=== PATIENT | female | born 1950 | race African-American/Black ===

== ENCOUNTER 2018-04-04 09:56 | Day surgery (SDC) | payer OTHER ==
[~2018-04-04 09:56] MED LIST: BUPIVACAINE HCL 0.75% INJ/PF (7.5 MG/1 ML) 10 ML SDV OS PRN; CHONDR SU A NA/HYALUR INTRAOC KIT (SURGICARE) ONE; EPINEPHRINE INJ/PF 1 MG/1 ML AMPULE ONE; KETOROLAC TROMETHAMINE 0.45% 4 DROP/0.4 ML DROPERETTE OS PRN; LIDOCAINE 1% INJ-PF (10 MG/ML) 30 ML SDV ONE; LIDOCAINE 4% INJ/PF (40 MG/ML) 5 ML AMPUL ONE; LIDOCAINE 4% INJ/PF (40 MG/ML) 5 ML AMPUL OS PRN; TRYPAN BLUE 0.06 % OPH SOLN 0.5 ML DISP.SYRIN ONE
[2018-04-04] MEDS ORDERED: ONDANSETRON HCL INJ/PF 4 MG/2 ML SDV ONE (10:40)
[2018-04-04] MEDS ORDERED: MIDAZOLAM 2 MG/2 ML INJ ONE (10:40)
[2018-04-04] MEDS ORDERED: FENTANYL CITRATE INJ/PF 100 MCG/2 ML AMPUL ONE (10:40)
[2018-04-04] MEDS: TETRACAINE HCL 0.5% OPH SOLN 0.6 ML DROPERETTE OS PRN ×2 (11:18→11:58)
[2018-04-04] MEDS: CYCLOPENTOLATE 0.2%/PHENYLEPHRINE 1% OPH SOLN 2 ML OS PRN ×3 (11:19→11:36)
[2018-04-04] MEDS: BESIFLOXACIN HCL 0.6% OPH SUSP 5 ML BOTTLE OS PRN ×3 (11:19→12:37)
[2018-04-04] MEDS: TROPICAMIDE 1% OPH SOLN 3 ML OS PRN ×3 (11:19→11:36)
[2018-04-04] MEDS ORDERED: LIDOCAINE 1%/EPINEPHRINE INJ 20 ML VIAL ONE (12:54)
--- NOTE | 2018-04-04 13:16 | [facility] DISCHARGE SUMMARY E ---
[facility] Discharge Summary NAME: NAEL RUIZ AGE: 68Y ADMITTED: 04/04/2018 DISCHARGED: 04/04/2018 FINAL DIAGNOSIS: CATARACT, LEFT EYE HOSPITAL COURSE: The patient is a 68-year-old lady who underwent uneventful cataract extraction with intraocular lens implant, left eye on 04/04/2018. She will be discharged to home. She is instructed to resume preoperative medications, take Tylenol as needed for discomfort, to keep her eye shielded, to use Pred Forte, Ketorolac, and Vigamox at 3 p.m. and 8 p.m., and to follow up in my office in 1 day. DICTATING PHYSICIAN: ALEXX CHAHAL M.D. [id number] PHY#: [id number] ID: [id number] JOB#: [id number] ACCT: [id number] cc:ALEXX CHAHAL M.D. >
--- NOTE | 2018-04-04 13:16 | [facility] OPERATIVE REPORT E ---
[facility] Operative Report NAME: NAEL RUIZ AGE: 68Y DATE OF SURGERY: 04/04/2018 ROOM: PREOPERATIVE DIAGNOSIS: CATARACT, LEFT EYE. POSTOPERATIVE DIAGNOSIS: CATARACT, LEFT EYE. PROCEDURE PERFORMED: PHACOEMULSIFICATION WITH POSTERIOR CHAMBER INTRAOCULAR LENS, LEFT EYE. SURGEON: ALEXX CHAHAL MD ANESTHESIA: TOPICAL WITH MAC. INDICATIONS FOR SURGERY: Difficulty driving and removal of cataract for upcoming retinal surgery. Best corrected visual acuity 20/200 PROCEDURE: The patient was brought to the Operating Room and placed on the operative table. Following tetracaine drops, topical anesthesia was administered. This consisted of instrument wipe pledgets soaked in a solution of 4% Xylocaine mixed with 0.75% Marcaine in a 1:2 ratio. A 2 x 1 cm pledget was placed in the superior fornix. A 1 x 1 cm pledget was placed in the inferior fornix. The eye was patched shut for 5 minutes. The patch was removed. The eye was sterilely prepped and draped in the usual manner. Lid speculum was placed in the eye. The pledgets were removed. 4-0 black silk sutures were placed around the superior and the inferior rectus muscles to be used as traction. A conjunctival peritomy was made at the 10 o'clock position. Hemostasis was obtained with bipolar cautery. A posterior limbal groove was created using a crescent knife and dissected anteriorly towards the cornea. A sharp point blade was used to create a paracentesis site at the 2 o'clock position. A 2.4 mm keratome was used to enter the anterior chamber through the groove. Viscoelastic was injected into the anterior chamber. An anterior capsulotomy was performed using Utrata forceps in a capsulorrhexis fashion. Hydrodissection and hydrodelineation were performed. Phacoemulsification was performed in [id number] technique. A total of 28 seconds phaco time was used. Following this, the I/A unit was used to remove residual cortex. Viscoelastic was injected into the capsular bag. Intraocular lens model [id number], 17.5 diopters, serial number [id number] was placed in the capsular bag. The I/A unit was used to remove residual viscoelastic. The wound was seen to be watertight under high and low pressure, and no sutures were placed. The intraocular lens was well centered. The pressure was adjusted in the eye to normal pressure. The 4-0 black silk sutures and lid speculum were removed. The eye was shielded after Besivance drops were placed. The patient tolerated the procedure well and was sent to the Recovery Room in good condition. DICTATING PHYSICIAN: ALEXX CHAHAL M.D. DICTATING PHYSICIAN: ALEXX CHAHAL M.D. [id number] PHY#: [id number] ID: [id number] JOB#: [id number] ACCT: [id number] cc:ALEXX CHAHAL M.D. >
== END 2018-04-04 13:19 | disposition home or self-care (01) ==
LOC: SC 09:56
PROVIDERS: ATTEND Ophthalmology
DX: H25.89 Other age-related cataract (principal); H35.372 Puckering of macula, left eye; E11.9 Type 2 diabetes mellitus without complications; I10 Essential (primary) hypertension; J44.9 Chronic obstructive pulmonary disease, unspecified; R00.2 Palpitations; R01.1 Cardiac murmur, unspecified; Z87.891 Personal history of nicotine dependence; Z88.0 Allergy status to penicillin; Z79.899 Other long term (current) drug therapy; Z79.84 Long term (current) use of oral hypoglycemic drugs; Z85.42 Personal history of malignant neoplasm of other parts of uterus
CPT/HCPCS: 66984; 82962; V2632; J2250; J3490 ×3; J0171; J3010; J2405; 142

== ENCOUNTER 2018-04-28 15:11 | Emergency (ER) | payer OTHER, MEDICARE ==
[2018-04-28] MEDS ORDERED: MORPHINE SULFATE 10 MG/ML INJ IV ONE (15:32)
--- NOTE | 2018-04-28 15:43 | ER Document Report ---
ED Medical Screen (RME) - General Chief Complaint: Back Pain Stated Complaint: POSSIBLE CYST ON SPINE Time Seen by Provider: 04/28/18 15:24 Mode of Arrival: Wheelchair Information source: Patient Notes: Patient is a 68-year-old female patient of Dr. Posada who presents with chief complaint of low back pain. Patient has a history of stage I endometrial cancer , last chemo and radiation 08/2013. Patient has had 1 month of low back pain with radiation to the right hip and leg. Patient reports that she is unable to walk now. Called and spoke with Dr. Posada,, he would like a MRI of the lumbar spine with contrast and a chest, abdomen, pelvis CT with contrast. Exam: Lung sounds are clear to auscultation bilaterally. Patient appears to be in acute pain. I have greeted and performed a rapid initial assessment of this patient. A comprehensive ED assessment and evaluation of the patient, analysis of test results and completion of the medical decision making process will be conducted by additional ED providers. Dictation of this chart was performed using voice recognition software; therefore, there may be some unintended grammatical errors. TRAVEL OUTSIDE OF THE [place] IN LAST 30 DAYS: No - Related Data Allergies/Adverse Reactions: Penicillins Allergy (Severe, Verified 03/29/18 14:07) Anaphylaxis Past Medical History - Social History Frequency of alcohol use: Rare Drug Abuse: None - Past Medical History Cardiac Medical History: Reports: Hx Hypertension Denies: Hx Heart Attack Pulmonary Medical History: Denies: Hx Asthma Neurological Medical History: Denies: Hx Cerebrovascular Accident, Hx Seizures Renal/ Medical History: Denies: Hx Peritoneal Dialysis GI Medical History: Denies: Hx Hepatitis, Hx Hiatal Hernia, Hx Ulcer Infectious Medical History: Denies: Hx Hepatitis Past Surgical History: Reports: Hx Hysterectomy. Denies: Hx Mastectomy, Hx Open Heart Surgery, Hx Pacemaker Physical Exam - Vital signs Vitals: Temp Pulse BP Pulse Ox 98.0 F 77 160/64 H 100 04/28/18 15:19 04/28/18 15:19 04/28/18 15:19 04/28/18 15:19 Course - Vital Signs Vital signs: Temp Pulse Resp BP Pulse Ox 98.0 F 77 160/64 H 100 04/28/18 15:19 04/28/18 15:19 04/28/18 15:19 04/28/18 15:19 Doctor's Discharge - Discharge Referrals: RISHI MONZON MD [Primary Care Provider] - Follow up as needed
[2018-04-28] MEDS ORDERED: MORPHINE SULFATE 10 MG/ML INJ IM ONE (16:20)
[2018-04-28 18:52] LABS: HEMATOCRIT 37.9 % (36.0-47.0); HEMOGLOBIN 12.3 g/dL (12.0-15.5); MEAN CORPUSCULAR HEMOGLOBIN 28.4 pg (27.0-33.4); MEAN CORPUSCULAR HGB CONC 32.5 g/dL (32.0-36.0); MEAN CORPUSCULAR VOLUME 88 fl (80-97); RED BLOOD COUNT 4.33 10^6/uL (3.72-5.28); RED CELL DISTRIBUTION WIDTH 15.1 % (11.5-14.0)
[2018-04-28 19:12] LABS: ABSOLUTE LYMPHOCYTES# (MANUAL) 4.7 10^3/uL (0.5-4.7); ABSOLUTE MONOCYTES # (MANUAL) 0.5 10^3/uL (0.1-1.4); ABSOLUTE NEUTROPHILS# (MANUAL) 7.7 10^3/uL (1.7-8.2); BAND NEUTROPHILS % (MANUAL) 1 % (3-5); BASOPHILS % (MANUAL) 0 % (0-2); EOSINOPHILS % (MANUAL) 1 % (0-6); LYMPHOCYTES % (MANUAL) 36 % (13-45); MONOCYTES % (MANUAL) 4 % (3-13); SEGMENTED NEUTROPHILS % (MAN) 58 % (42-78); TOTAL CELLS COUNTED 100
[2018-04-28 19:14] LABS: ANISOCYTOSIS SLIGHT; BURR CELLS SLIGHT; OVALOCYTES SLIGHT; POIKILOCYTOSIS SLIGHT; TOXIC VACUOLATION PRESENT
[2018-04-28 19:15] LABS: PLATELET CLUMPS PRESENT; PLATELET COMMENT ADEQUATE
[2018-04-28 19:19] LABS: PLATELET COUNT 263 10^3/uL (150-450)
[2018-04-28 20:14] LABS: ALANINE AMINOTRANSFERASE 50 U/L (9-52); ALBUMIN 4.4 g/dL (3.5-5.0); ALKALINE PHOSPHATASE 79 U/L (38-126); ANION GAP 12 (5-19); ASPARTATE AMINO TRANSFERASE 41 U/L (14-36); BILIRUBIN,DIRECT 0.4 mg/dL (0.0-0.4); BILIRUBIN,TOTAL 0.4 mg/dL (0.2-1.3); BLOOD UREA NITROGEN 25 mg/dL (7-20); CARBON DIOXIDE 25 mmol/L (22-30); CHLORIDE 107 mmol/L (98-107); GLUCOSE 118 mg/dL (75-110); POTASSIUM 4.4 mmol/L (3.6-5.0); TOTAL PROTEIN 7.9 g/dL (6.3-8.2)
--- NOTE | 2018-04-28 20:57 | RADIOLOGY REPORT (SQ) ---
EXAM DESCRIPTION: CT CHEST WITH COMPLETED DATE/TIME: 04/28/2018 8:42 pm REASON FOR STUDY: eval for metastasis COMPARISON: None. TECHNIQUE: CT scan of the chest performed using helical scanning technique with dynamic intravenous contrast injection. Images reviewed with lung, soft tissue and bone windows. Reconstructed coronal and sagittal MPR and MIP images reviewed. All images stored on PACS. All CT scanners at this facility use dose modulation, iterative reconstruction, and/or weight based d osing when appropriate to reduce radiation dose to as low as reasonably achievable (ALARA). [facility]: Dose Right [facility]: CareDose [facility]: Dose Right [facility]: Teradose 4D [facility]: REH CONTRAST TYPE AND DOSE: 80 mL 80 mL Omnipaque 350- low osmolar. RENAL FUNCTION: BUN 12 creatinine 0.85 RADIATION DOSE: CT Rad equipment meets quality standard of care and radiation dose reduction techniq ues were employed. CTDIvol: 7.9 - 10.8 mGy. DLP: 1040 mGy-cm. . LIMITATIONS: None. FINDINGS: LUNGS AND PLEURA: No opacities, nodules, masses. No pneumothorax. No effusions. HILAR AND MEDIASTINAL STRUCTURES: No identified masses or abnormal nodes. HEART AND VASCULAR STRUCTURES: No aneurysm or dissection. No central pulmonary emboli. No pericardi al effusion. HARDWARE: None in the chest. UPPER ABDOMEN: See separate report of the CT of the abdomen. THYROID AND OTHER SOFT TISSUES: 10 mm low-density right thyroid nodule. BONES: No significant finding. OTHER: No other significant finding. IMPRESSION: 1. Small right thyroid nodule. 2. No pulmonary or thoracic metastases are seen. TECHNICAL DOCUMENTATION: JOB ID: [id number] Quality ID # [id number]: Final reports with documentation of one or more dose reduction techniques (e.g., Au tomated exposure control, adjustment of the mA and/or kV according to patient size, use of iterative reconstruction technique) 2010 [employer]- All Rights Reserved Reading location - IP/workstation name: [email or web address]
--- NOTE | 2018-04-28 21:01 | RADIOLOGY REPORT (SQ) ---
EXAM DESCRIPTION: CT ABD/PELVIS WITH IV ONLY COMPLETED DATE/TIME: 04/28/2018 8:42 pm REASON FOR STUDY: eval for metastasis COMPARISON: 08/13/2013 TECHNIQUE: CT scan of the abdomen and pelvis performed using helical scanning technique with dynamic intravenous contrast injection. No oral contrast. Images reviewed with lung, soft tissue, and bone windows. Reconstructed coronal and sagittal MPR images reviewed. Delayed images for evaluation of the urinary system also acquired. All images stored on PACS. All CT scanners at this facility use dose modulation, iterative reconstruction, and/or weight based d osing when appropriate to reduce radiation dose to as low as reasonably achievable (ALARA). [facility]: Dose Right [facility]: CareDose [facility]: Dose Right [facility]: Teradose 4D [facility]: [email or web address] CONTRAST TYPE AND DOSE: contrast/concentration: Isovue 350.00 mg/ml; Total Contrast Delivered: 80.0 ml; Total Saline Delivered: 24.8 ml RENAL FUNCTION: BUN 12 creatinine 0.85 RADIATION DOSE: . LIMITATIONS: None. FINDINGS: LOWER CHEST: See separate report of the CT of the chest. LIVER: Normal size. No masses. No dilated ducts. SPLEEN: Normal size. No focal lesions. PANCREAS: No masses. No significant calcifications. No adjacent inflammation or peripancreatic fluid collections. Pancreatic duct not dilated. GALLBLADDER: No identified stones by CT criteria. No inflammatory changes to suggest cholecystitis. ADRENAL GLANDS: No significant masses or asymmetry. RIGHT KIDNEY AND URETER: No solid masses. No significant calcifications. No hydronephrosis or hyd roureter. LEFT KIDNEY AND URETER: No solid masses. No significant calcifications. No hydronephrosis or hydr oureter. AORTA AND VESSELS: No aneurysm. No dissection. Renal arteries, SMA, celiac without stenosis. RETROPERITONEUM: No retroperitoneal adenopathy, hemorrhage or masses. BOWEL AND PERITONEAL CAVITY: Mild sigmoid diverticulosis. No acute inflammatory changes. No obvious bowel masses. APPENDIX: Normal. PELVIS: No mass. No free fluid. Normal bladder. ABDOMINAL WALL: No masses. No hernias. BONES: No significant or acute findings. OTHER: No other significant finding. IMPRESSION: Mild diverticulosis coli. No abdominal or pelvic metastases are seen. TECHNICAL DOCUMENTATION: JOB ID: [id number] Quality ID # [id number]: Final reports with documentation of one or more dose reduction techniques (e.g., Au tomated exposure control, adjustment of the mA and/or kV according to patient size, use of iterative reconstruction technique) 2010 [employer]- All Rights Reserved Reading location - IP/workstation name: [email or web address]
[2018-04-28] MEDS ORDERED: KETOROLAC TROMETHAMINE INJ/PF 30 MG/1 ML SDV IV ONE (21:43)
[2018-04-28] MEDS ORDERED: LIDOCAINE 5% (700 MG) TRANSDERMAL ADH..PATCH TP ONE (21:43)
--- NOTE | 2018-04-28 22:50 | RADIOLOGY REPORT (SQ) ---
EXAM DESCRIPTION: MR LUMBAR SPINE WITHOUT THEN WITH IV CONTRAST COMPLETED DATE/TME: 04/28/2018 15:35 CLINICAL HISTORY: 68 years Female, eval for metastasis COMPARISON: None. TECHNIQUE/LIMITATION: Conventional MRI before and after IV gadolinium. FINDINGS: Minimal L4-L5 disc bulge and mild L4-L5 spondylosis. Normal alignment and curvature. No spinal or foraminal canal compromise. Normal signal and position of the conus medullaris. Normal bone marrow signal. No enhancement abnormality. IMPRESSION: No acute or suspicious MRI findings of the lumbar spine.
--- NOTE | 2018-04-28 23:20 | ER Document Report ---
ED General - General Chief Complaint: Back Pain Stated Complaint: POSSIBLE CYST ON SPINE Time Seen by Provider: 04/28/18 15:24 Mode of Arrival: Wheelchair Notes: Patient is a 68-year-old female with a past medical history of endometrial cancer who presents with 1 month of progressively worsening pain into her right lower extremity. The patient states that this pain started gradually and has gotten progressively worse over that period of time. She describes it as a shocking, burning pain from her right buttock rating all the way down to her right foot. She states walking or moving the leg worsens the pain. She has tried gabapentin with no improvement of the pain. She was seen by her oncologist today and referred to the emergency department due to concerns of a possible cystic mass on her lumbar spine seen on a CT scan obtained at [facility] 3 days ago. She denies any bowel or bladder incontinence, urinary retention, but does state that the pain is sometimes associated makes it difficult for her to walk. She denies any true weakness or numbness to the area. No history of similar symptoms in the past no known injury to her back or hip. She denies fever or constitutional symptoms. TRAVEL OUTSIDE OF THE [place] IN LAST 30 DAYS: No - Related Data Allergies/Adverse Reactions: Penicillins Allergy (Severe, Verified 03/29/18 14:07) Anaphylaxis Past Medical History - General Information source: Patient - Social History Smoking Status: Former Smoker Frequency of alcohol use: Rare Drug Abuse: None Lives with: Spouse/Significant other Family History: Reviewed & Not Pertinent Patient has suicidal ideation: No Patient has homicidal ideation: No - Past Medical History Cardiac Medical History: Reports: Hx Hypertension Denies: Hx Heart Attack Pulmonary Medical History: Denies: Hx Asthma Neurological Medical History: Denies: Hx Cerebrovascular Accident, Hx Seizures Renal/ Medical History: Denies: Hx Peritoneal Dialysis GI Medical History: Denies: Hx Hepatitis, Hx Hiatal Hernia, Hx Ulcer Infectious Medical History: Denies: Hx Hepatitis Past Surgical History: Reports: Hx Hysterectomy. Denies: Hx Mastectomy, Hx Open Heart Surgery, Hx Pacemaker Review of Systems - Review of Systems Notes: Constitutional: Negative for fever. HENT: Negative for sore throat. Eyes: Negative for visual changes. Cardiovascular: Negative for chest pain. Respiratory: Negative for shortness of breath. Gastrointestinal: Negative for abdominal pain, vomiting or diarrhea. Genitourinary: Negative for dysuria. Musculoskeletal: Positive for right leg pain Skin: Negative for rash. Neurological: Negative for headaches, weakness or numbness. 10 point ROS negative except as marked above and in HPI. Physical Exam - Vital signs Vitals: Temp Pulse BP Pulse Ox 98.0 F 77 160/64 H 100 04/28/18 15:19 04/28/18 15:19 04/28/18 15:19 04/28/18 15:19 Interpretation: Hypertensive Notes: PHYSICAL EXAMINATION: GENERAL: Appears moderately uncomfortable but in no acute distress HEAD: Atraumatic, normocephalic. EYES: Pupils equal round and reactive to light, extraocular movements intact, sclera anicteric, conjunctiva are normal. ENT: nares patent, oropharynx clear without exudates. Moist mucous membranes. NECK: Normal range of motion, supple without lymphadenopathy LUNGS: Breath sounds clear to auscultation bilaterally and equal. No wheezes rales or rhonchi. HEART: Regular rate and rhythm without murmurs ABDOMEN: Soft, nontender, normoactive bowel sounds. No guarding, no rebound. No masses appreciated. EXTREMITIES: Normal range of motion, no pitting or edema. No cyanosis. Back: No midline spinal tenderness, step-offs or deformities. NEUROLOGICAL: 5 out of 5 strength both distally and proximally bilateral lower extremities. 2+ patellar reflexes bilaterally. No clonus. Sensation grossly intact in the bilateral lower extremities. Patient is able to ambulate without difficulty. PSYCH: Moderately anxious SKIN: Warm, Dry, normal turgor, no rashes or lesions noted. Course - Re-evaluation Re-evalutation: 04/28/18 23:43 Patient presents with 1 month of progressive worsening right leg pain concerning for sciatic nerve root impingement. There was concern of a possible cystic lesion on her spine and she was referred to the emergency department by her oncologist for further evaluation with an L-spine MRI. Thankfully her MRI shows only a moderate disc bulge at L4-5 but is otherwise unremarkable. No evidence of metastatic or cystic lesions. A CT of her chest abdomen and pelvis was also obtained to evaluate for any evidence of metastatic disease which is likewise normal. On examination she has 5 out of 5 strength both distally and proximally in the bilateral lower extremities that is equal and symmetric. She has normal reflexes bilaterally. Sensation intact throughout. Patient does not have any palpable pain to the midline of the spine. I have discussed the findings with the oncologist who referred to the emergency department will follow her up on Tuesday. I have increased the patient's gabapentin to 300 mg 3 times daily, started her on NSAID therapy and oral morphine as needed. At this time will discharge with return precautions and follow-up recommendations. Verbal discharge instructions given a the bedside and opportunity for questions given. Medication warnings reviewed. Patient is in agreement with this plan and has verbalized understanding of return precautions and the need for primary care follow-up in the next 24-72 hours. - Vital Signs Vital signs: Temp Pulse Resp BP Pulse Ox 97.7 F 72 14 169/76 H 98 04/29/18 00:11 04/29/18 00:11 04/29/18 00:11 04/29/18 00:11 04/29/18 00:11 - Laboratory Result Diagrams: 04/28/18 18:32 04/28/18 19:50 Laboratory results interpreted by me: 04/28/18 04/28/18 18:32 19:50 WBC 13.0 H RDW 15.1 H Band Neutrophils % 1 L BUN 25 H Glucose 118 H AST 41 H - Diagnostic Test Radiology reviewed: Reports reviewed Discharge - Discharge Clinical Impression: Endometrial cancer, Right leg pain Sciatic nerve pain Qualifiers: Laterality: right Qualified Code(s): M54.31 - Sciatica, right side Condition: Good Disposition: HOME, SELF-CARE Additional Instructions: You have been seen in the Emergency Department (ED) today for right leg pain. Your MRI today is normal with the exception of a mild disc bulge at L4-5. There is no evidence of a cystic lesion. The CT scans of your chest, abdomen and pelvis are likewise normal. For your pain: Take naproxen 500 mg twice daily and acetaminophen 1000 mg every 6 hours together as needed for pain. If this does not control your pain you may take 15 mg of oral morphine every 4 hours as needed. Please be very careful about using the oral morphine and only use this for severe pain. Please also take gabapentin 300 mg 3 times daily. You should also purchase a local lidocaine cream such as "aspercreme with lidocaine" and use per bottle instructions to the affected area. Apply heat to the area as often as you are able. Continue to keep active and avoid prolonged periods of bed rest. Please follow up with your doctor as soon as possible regarding today's ED visit and your leg pain. Return to the ED for worsening pain, fever, weakness or numbness of either leg, or if you develop either (1) an inability to urinate or have bowel movements, or (2) loss of your ability to control your bathroom functions (if you start having "accidents"), or if you develop other new symptoms that concern you.concern you. Please follow-up closely with your oncologist regarding today's visit to the emergency department. Prescriptions: Morphine Sulfate [Morphine Ir 15 mg Tablet] 15 mg PO Q6HP PRN #12 tablet PRN Reason: Famotidine 40 mg PO DAILY #30 tablet Gabapentin 300 mg PO TID #90 capsule Naproxen 500 mg PO BID #60 tablet Referrals: RISHI MONZON MD [ACTIVE STAFF] - 05/01/18
[2018-04-28] MEDS ORDERED: GABAPENTIN 300 MG CAPSULE PO ONE (23:43)
[2018-04-28] MEDS ORDERED: ACETAMINOPHEN 325 MG TABLET PO ONE (23:43)
[2018-04-28] MEDS ORDERED: MORPHINE SULFATE IR 15 MG TABLET PO ONE (23:43)
[2018-04-29 00:12] VITALS: BP 169/76
== END 2018-04-29 00:20 | disposition home or self-care (01) ==
LOC: ER 15:11
DX: C54.1 Malignant neoplasm of endometrium (principal); M79.604 Pain in right leg; M54.31 Sciatica, right side; M54.9 Dorsalgia, unspecified; M79.1 Myalgia; M79.671 Pain in right foot; Z87.891 Personal history of nicotine dependence; I10 Essential (primary) hypertension
CPT/HCPCS: 99284; 96372; 96374; 36415; 85025; 80053; 72158; 71260; 74177; J1885; J2270

== ENCOUNTER 2018-07-05 05:37 | Day surgery (SDC) | payer MEDICARE, OTHER ==
[2018-07-03 11:12] LABS: ABSOLUTE BASOPHILS # (AUTO) 0.1 10^3/uL (0.0-0.2); ABSOLUTE EOSINOPHILS # (AUTO) 0.1 10^3/uL (0.0-0.6); ABSOLUTE LYMPHOCYTES (AUTO) 2.7 10^3/uL (0.5-4.7); ABSOLUTE MONOCYTES (AUTO) 0.7 10^3/uL (0.1-1.4); ABSOLUTE NEUT (AUTO) 4.4 10^3/uL (1.7-8.2); BASOPHILS % (AUTO) 1.1 % (0-2); EOSINOPHILS % (AUTO) 0.9 % (0-6); HEMATOCRIT 40.4 % (36.0-47.0); HEMOGLOBIN 12.9 g/dL (12.0-15.5); LYMPHOCYTES % (AUTO) 33.9 % (13-45); MEAN CORPUSCULAR HEMOGLOBIN 28.9 pg (27.0-33.4); MEAN CORPUSCULAR VOLUME 91 fl (80-97); MONOCYTES % (AUTO) 8.4 % (3-13); RED BLOOD COUNT 4.46 10^6/uL (3.72-5.28); RED CELL DISTRIBUTION WIDTH 15.8 % (11.5-14.0); SEGMENTED NEUTROPHILS % (AUTO) 55.7 % (42-78); TOTAL CELLS COUNTED % (AUTO) 100 %
[2018-07-03 11:30] LABS: ANION GAP 10 (5-19); BLOOD UREA NITROGEN 22 mg/dL (7-20); CARBON DIOXIDE 27 mmol/L (22-30); CHLORIDE 106 mmol/L (98-107); GLUCOSE 102 mg/dL (75-110); POTASSIUM 5.8 mmol/L (3.6-5.0); SODIUM 142.5 mmol/L (137-145)
[2018-07-03 11:50] LABS: PLATELET COUNT 210 10^3/uL (150-450)
[~2018-07-05 05:37] MED LIST changes: -BUPIVACAINE HCL 0.75% INJ/PF (7.5 MG/1 ML) 10 ML SDV OS PRN; -CHONDR SU A NA/HYALUR INTRAOC KIT (SURGICARE) ONE; +CLINDAMYCIN 600 MG/D5W RTU 600 MG/50 ML RTUPB IV ONE; +CLINDAMYCIN 600 MG/D5W RTU 600 MG/50 ML RTUPB IV PRN; -EPINEPHRINE INJ/PF 1 MG/1 ML AMPULE ONE; -KETOROLAC TROMETHAMINE 0.45% 4 DROP/0.4 ML DROPERETTE OS PRN; +LACTATED RINGERS 1000 ML IV PRN; +LIDOCAINE 0.5% INJ-PF (5 MG/ML) 50 ML SDV SUBCUT PRN; -LIDOCAINE 1% INJ-PF (10 MG/ML) 30 ML SDV ONE; -LIDOCAINE 4% INJ/PF (40 MG/ML) 5 ML AMPUL ONE; -LIDOCAINE 4% INJ/PF (40 MG/ML) 5 ML AMPUL OS PRN; -TRYPAN BLUE 0.06 % OPH SOLN 0.5 ML DISP.SYRIN ONE
[2018-07-05] MEDS ORDERED: BUPIVACAINE INJ/PF LIPOSOME/PF 266 MG/20 ML SDV ONE (06:34)
[2018-07-05] MEDS ORDERED: BUPIVACAINE HCL 0.5 % INJ/PF 30 ML SDV ONE (06:34)
[2018-07-05] MEDS ORDERED: BACITRACIN INJ 50,000 UNIT VIAL ONE (06:34)
[2018-07-05] MEDS ORDERED: MIDAZOLAM 2 MG/2 ML INJ ONE (07:18)
[2018-07-05] MEDS ORDERED: FENTANYL CITRATE INJ/PF 250 MCG/5 ML AMPULE ONE ×2 (07:18→07:19)
[2018-07-05] MEDS ORDERED: PROPOFOL INJ 200 MG/20 ML VIAL IV ONE (07:19)
[2018-07-05] MEDS ORDERED: ACETAMINOPHEN 1,000 MG/100 ML RTUPB IV ONE ×2 (07:19→07:20)
[2018-07-05] MEDS ORDERED: MEPERIDINE HCL/PF INJ 25 MG/1 ML DISP.SYRIN IV PRN (08:49)
[2018-07-05] MEDS ORDERED: DIPHENHYDRAMINE HCL 50 MG/ML VIAL IV PRN (08:49)
[2018-07-05] MEDS ORDERED: PROMETHAZINE HCL INJ 25 MG/1 ML VIAL IV PRN ×2 (08:49)
[2018-07-05] MEDS ORDERED: OXYCODONE-ACETAMINOPHEN 5-325 MG TABLET PO PRN ×2 (08:49)
[2018-07-05] MEDS ORDERED: FENTANYL CITRATE INJ/PF 100 MCG/2 ML AMPUL IV PRN ×3 (08:49)
[2018-07-05] MEDS: FENTANYL CITRATE INJ/PF 100 MCG/2 ML AMPUL ONE ×2 (10:14→10:19)
[2018-07-05] MEDS ORDERED: METHOCARBAMOL INJ/PF 1000 MG/10 ML SDV IV ONE (11:00)
[2018-07-05] MEDS: HYDROCODONE/ACETAMINOPHEN 5-325 MG TABLET ONE ×2 (12:30→15:50)
--- NOTE | 2018-07-05 13:36 | OPERATIVE REPORT E ---
Operative Report NAME: NAEL RUIZ : 1950 AGE: 68Y DATE OF SURGERY: 07/05/2018 ROOM: PREOPERATIVE DIAGNOSES: 1. Central stenosis and radiculitis, right lower extremity, L4-5. 2. Back pain, radiculitis, degenerative joint disease. POSTOPERATIVE DIAGNOSES: 1. Central stenosis and radiculitis, right lower extremity, L4-5. 2. Back pain, radiculitis, degenerative joint disease. OPERATION: 1. Partial L4 laminectomy. 2. Partial facetectomy, right-sided L4-5. 3. Resection of facet cyst. SURGEON: EVERETTE ROA M.D. BOX OFFICE AGENT: SUNDEEP Bingham ANESTHESIA: General endotracheal intubation. ESTIMATED BLOOD LOSS: 50 mL. INDICATIONS: The patient is a 68-year-old female who has failed conservative management, including injections and physical therapy. After a discussion with the patient of the risks, indications, and alternatives, including the risk of infection and bleeding, damage to nerves or blood vessels, the risk of dural tear, the risk of spinal headaches, the risk of continued back pain, the need for further surgery, the patient understood these risks and wished to pursue surgical intervention. OPERATIVE TECHNIQUE: The patient was brought into the room, placed under anesthesia, received 600 mg of clindamycin with a 1 hour of cut time, had SCDs and a warm blanket placed on her. The patient was placed in the prone position on the radiolucent table with a Vince frame attachment. The Vince frame was turned up to open up the interspace posteriorly. Middle and lower back were prepped and draped under sterile fashion. Under C-arm fluoroscopy the skin was marked at L4-5. After completion of prepping and draping, after appropriate surgical time out, a midline incision was carried down through the skin. Electrocautery was used to maintain hemostasis. Dissection was carried down onto the lamina of L4 and L5 and the posterior interspace at L4-5 was marked with a Jose under C-arm fluoroscopy. The C-arm imaging was used to verify the L4-5 level. The spinous process of L4 was resected and the microscope was brought in. Under the microscope and with the assistance of Avni Llanos, Physician Brine Mixer Operator, partial laminectomy was performed and resection of spurs. There was significant ligamentum flavum hypertrophy with significant central stenosis and severe neural foraminal narrowing on the right side that was decompressed, significant spurs were resected as well as significant facet cyst which was adherent to the axilla or nerve root. This was removed piecemeal and sent off to pathology for permanent specimen, and then the dura and the nerve root was exposed. The dura was found to pulse and show evidence of expansion and the nerve root was exposed and felt to be free exiting into the foramen. A Valsalva maneuver was performed by Anesthesia, noting no cerebrospinal fluid leakage and no epidural bleeders. The wound was irrigated with a liter of Bacitracin irrigation and then the fascia was reapproximated with 0 Vicryl and the deep and superficial soft tissues were infiltrated with 1.3% Exparel 20 mL mixed with 20 mL of 0.5% bupivacaine plain. After that the subcutaneous tissue was reapproximated with 2-0 Vicryl and the skin with a running subcuticular 3-0 Monocryl. Wounds were dressed in Benzoin, Steri-Strips, 4 x 4, and tape. The patient's condition is stable. Disposition is to recovery room. Please note, this procedure could not have been done without the assistance of Avni Llanos, Physician Brine Mixer Operator, working under the microscope, carrying out the resection of the facet cyst and the partial laminectomy. The patient was brought to the supine position, extubated, and brought to the recovery room, condition stable, estimated blood loss 50 mL. DICTATING PHYSICIAN: EVERETTE ROA M.D. [id number] PHY#: [id number] ID: [id number] JOB#: [id number] ACCT: [id number] cc:EVERETTE ROA M.D. >
[2018-07-05] MEDS ORDERED: DEXAMETHASONE SOD PHOSPHATE INJ 4 MG/1 ML VIAL ONE (13:52)
[2018-07-05] MEDS ORDERED: ROCURONIUM BROMIDE INJ 50 MG/5 ML VIAL IV ONE (13:52)
[2018-07-05] MEDS ORDERED: NEOSTIGMINE METHYLSULFATE 10 MG/10 ML VIAL ONE (13:52)
[2018-07-05] MEDS ORDERED: ONDANSETRON HCL INJ/PF 4 MG/2 ML SDV ONE (13:52)
[2018-07-05] MEDS ORDERED: GLYCOPYRROLATE 1 MG/5 ML SYRINGE ONE (13:52)
[2018-07-05] MEDS ORDERED: SUCCINYLCHOLINE CHLORIDE INJ 200 MG/10 ML VIAL ONE (13:52)
--- NOTE | 2018-07-05 14:47 | RADIOLOGY REPORT (SQ) ---
EXAM DESCRIPTION: NO CHG FLUORO; SPINE SINGLE VIEW COMPLETED DATE/TIME: 07/05/2018 2:25 pm REASON FOR STUDY: LUMBAR LAMINECTOMY ASST WITH FLUORO IN OR COMPARISON: None. FLUOROSCOPY TIME: 0 minutes 1 Images saved to PACS LIMITATIONS: None. PROCEDURE: Lumbar laminectomy. FINDINGS: A single image obtained from fluoro shows a forceps marking the spinous process of L4. IMPRESSION: Intraoperative image. COMMENT: PQRS [id number]: Fluoroscopy time of the procedure is documented in the report. TECHNICAL DOCUMENTATION: JOB ID: [id number] [email or web address]- All Rights Reserved Reading location - IP/workstation name: [email or web address]
--- NOTE | 2018-07-05 14:47 | RADIOLOGY REPORT (SQ) ---
EXAM DESCRIPTION: NO CHG FLUORO; SPINE SINGLE VIEW COMPLETED DATE/TIME: 07/05/2018 2:25 pm REASON FOR STUDY: LUMBAR LAMINECTOMY ASST WITH FLUORO IN OR COMPARISON: None. FLUOROSCOPY TIME: 0 minutes 1 Images saved to PACS LIMITATIONS: None. PROCEDURE: Lumbar laminectomy. FINDINGS: A single image obtained from fluoro shows a forceps marking the spinous process of L4. IMPRESSION: Intraoperative image. COMMENT: PQRS [id number]: Fluoroscopy time of the procedure is documented in the report. TECHNICAL DOCUMENTATION: JOB ID: [id number] [employer]- All Rights Reserved Reading location - IP/workstation name: [email or web address]
--- NOTE | 2018-07-05 15:18 | RADIOLOGY REPORT (SQ) ---
EXAM DESCRIPTION: CHEST SINGLE VIEW COMPLETED DATE/TIME: 07/05/2018 2:43 pm REASON FOR STUDY: Unable to maintain O2 sats COMPARISON: None. EXAM PARAMETERS: NUMBER OF VIEWS: One view. TECHNIQUE: Single frontal radiographic view of the chest acquired. RADIATION DOSE: NA LIMITATIONS: Poor inspiratory effort. FINDINGS: LUNGS AND PLEURA: Low lung volumes. Perihilar airspace disease, right greater than left. No large effusions. MEDIASTINUM AND HILAR STRUCTURES: No masses. Contour normal. HEART AND VASCULAR STRUCTURES: Heart normal in size. Normal vasculature. BONES: No acute findings. HARDWARE: None in the chest. OTHER: No other significant finding. IMPRESSION: Pneumonia or asymmetric edema. Clinical correlation is needed. TECHNICAL DOCUMENTATION: JOB ID: [id number] [employer]- All Rights Reserved Reading location - IP/workstation name: [email or web address]
[2018-07-05] MEDS ORDERED: HYDROCODONE/ACETAMINOPHEN 5-325 MG TABLET ONE (15:46)
[2018-07-05 17:21] VITALS: BP 148/79
--- NOTE | 2018-07-05 18:46 | PDOC CONSULTATION ---
Consultation Consult Date: 07/05/18 Attending physician:: EVERETTE ROA Consult reason:: Postoperative hypoxia History of Present Illness Admission Date/PCP: SHELDON FRANCO NP Patient complains of: Low oxygen levels History of Present Illness: NAEL RUIZ is a 68 year old female who underwent discectomy today in the ambulatory surgery unit. She was feeling fine preoperatively. Postoperatively they found her room air oxygenation to be low. She typically responded with some deep breathing but initially her pulse ox at rest was less than 90%. Slowly through the afternoon she began to improve. By late afternoon on room air at rest she was anywhere from 92% to 95%. She has no history of chronic lung disease. There is no history of heart disease. She was afebrile throughout the procedure as well as postoperatively. She does not feel short of breath. Past Medical History Cardiac Medical History: Reports: Hypertension Denies: Coronary Artery Disease, Myocardial Infarction Pulmonary Medical History: Denies: Asthma, Bronchitis, Chronic Obstructive Pulmonary Disease (COPD), Pneumonia Neurological Medical History: Denies: Seizures GI Medical History: Denies: Hepatitis, Hiatal Hernia Musculoskeltal Medical History: Reports: Arthritis - spine Hematology: Denies: Anemia, Sickle Cell Disease Past Surgical History Past Surgical History: Reports: Hysterectomy Denies: Amputation, Mastectomy, Pacemaker Social History Information Source: Patient Lives with: Family Smoking Status: Never Smoker Hx Recreational Drug Use: No Drugs: None Hx Prescription Drug Abuse: No - Advance Directive Resuscitation Status: Full Code Family History Family History: Reviewed & Not Pertinent Parental Family History Reviewed: Yes - Not relevant to this consult. Children Family History Reviewed: NA Sibling(s) Family History Reviewed.: NA Medication/Allergy Home Medications: Albuterol Sulfate [Proventil Hfa] 6.7 gm IH QID PRN 03/29/18 Lisinopril 40 mg PO DAILY 03/29/18 Metformin HCl 500 mg PO BID 03/29/18 Metoprolol Tartrate [Lopressor 25 mg Tablet] 1 tab PO DAILY 07/03/18 Pregabalin [Lyrica 75 mg Capsule] 300 mg PO BID 07/03/18 Allergies/Adverse Reactions: Penicillins Allergy (Severe, Verified 07/03/18 08:55) Anaphylaxis Review of Systems Constitutional: ABSENT: chills, fever(s), headache(s) Eyes: ABSENT: visual disturbances Ears: ABSENT: hearing changes Nose, Mouth, and Throat: ABSENT: headache(s), mouth pain, sore throat, vertigo Cardiovascular: ABSENT: chest pain, edema, palpitations Respiratory: ABSENT: cough, dyspnea, hemoptysis, sputum Gastrointestinal: ABSENT: abdominal pain, heartburn, nausea, vomiting Musculoskeletal: PRESENT: back pain Integumentary: PRESENT: wounds - Lower spine incision with dressing in place.. ABSENT: pruritus, rash Neurological: ABSENT: abnormal speech, confusion, dizziness Psychiatric: ABSENT: anxiety, depression Endocrine: ABSENT: cold intolerance, heat intolerance Hematologic/Lymphatic: ABSENT: easy bleeding, easy bruising Physical Exam Vital Signs: Temp Pulse Resp BP Pulse Ox 97.8 F 74 16 148/79 H 94 07/05/18 12:10 07/05/18 17:15 07/05/18 17:15 07/05/18 17:15 07/05/18 17:15 Intake & Output 07/04/18 07/05/18 07/06/18 06:59 06:59 06:59 Intake Total 0 1800 Output Total 450 Balance 0 1350 Weight 73.94 kg 73.94 kg General appearance: PRESENT: cooperative, obese, well-developed, well- nourished. ABSENT: no acute distress Head exam: PRESENT: atraumatic, normocephalic Eye exam: PRESENT: conjunctiva pink, EOMI. ABSENT: scleral icterus Ear exam: PRESENT: normal external ear exam Mouth exam: PRESENT: dry mucosa, neck supple, tongue midline Neck exam: ABSENT: carotid bruit, JVD, lymphadenopathy Respiratory exam: PRESENT: clear to auscultation candace, rales - Fine rales bilaterally, symmetrical, unlabored. ABSENT: chest wall tenderness, rhonchi, wheezes Cardiovascular exam: PRESENT: RRR, +S1, +S2 GI/Abdominal exam: PRESENT: normal bowel sounds, soft. ABSENT: distended, tenderness Extremities exam: ABSENT: pedal edema, tenderness Musculoskeletal exam: PRESENT: other - Back pain with limited motion. Surgery was several hours ago. Neurological exam: PRESENT: alert, awake, oriented to person, oriented to place , oriented to time, oriented to situation, CN II-XII grossly intact Psychiatric exam: PRESENT: appropriate affect, normal mood Focused psych exam: ABSENT: delusional, paranoid, restlessness Skin exam: PRESENT: other - Incision as above Results Laboratory Results: 07/03/18 10:40 07/05/18 07:38 07/05/18 07/05/18 05:47 07:38 Potassium Cancelled 4.4 07/03/18 08:52 Nasophary (Mrsa Only) MRSA Culture - Final NO MRSA RECOVERED Impressions: Fluoroscopy 07/05/18 00:00 IMPRESSION: Intraoperative image. Spine X-Ray 07/05/18 00:00 IMPRESSION: Intraoperative image. Chest X-Ray 07/05/18 14:08 IMPRESSION: Pneumonia or asymmetric edema. Clinical correlation is needed. Assessment & Plan - Diagnosis (1) Postoperative hypoxia Is this a current diagnosis for this admission?: Yes Plan: After reviewing today's events and discussing this with the patient and her it is more likely that she has some atelectasis from a combination of the pain as well as pain medications and shallow breathing. She was afebrile. She was in no distress. She states that she feels she is at her baseline. There is no history of pulmonary disease. With time and use of the inspirometer the patient's oxygenation improved to the point where she remained above 90% consistently. I told her I felt it was safe for her to go home. I insisted that she use the inspirometer 5-6 times a day. I went through this with her who will monitor her use. I explained that normally increased activity will help the breathing as well but she is limited from her spine surgery. Using the incentive spirometer is in fact the best way to resolve this. The patient does have an albuterol inhaler. She states that she use this after her treatment for her endometrial cancer. There are no wheezes and her breathing is not labored and so I told her that I did not think the albuterol inhaler would be of any particular use. (2) Atelectasis pulmonary Is this a current diagnosis for this admission?: Yes Plan: As noted above I believe the mechanism for her hypoxia is postoperative atelectasis. Her symptomatology did not suggest DVT or pulmonary embolism. She did not have a cough productive or otherwise. She has no history of cardiac disease. She will follow the plan outlined above and follow-up with her primary care doctor. - Time Time Spent: 50 to 70 Minutes Anticipated discharge: Home Within: within 24 hours Disposition: I discussed my thoughts with the nurse and told the patient, her and the nurse that I felt it was safe for her to go home. Thank you for allowing me to participate in the care of this very pleasant woman. - Inpatient Certification Based on my medical assessment, after consideration of the patient's comorbidities, presenting symptoms, or acuity I expect that the services needed warrant INPATIENT care.: No I certify that my determination is in accordance with my understanding of Medicare's requirements for reasonable and necessary INPATIENT services [42 CFR 412.3e].: No - Plan Summary Plan Summary: The patient will be discharged to home with follow-up appointments as scheduled. I suggested she follow-up with her primary care physician as well. She will utilize the incentive spirometer as outlined above.
== END 2018-07-05 17:15 | disposition home or self-care (01) ==
LOC: OROUT 05:37
PROVIDERS: ATTEND Orthopaedic Surgery
DX: M43.16 Spondylolisthesis, lumbar region (principal); M48.062 Spinal stenosis, lumbar region with neurogenic claudication; M54.16 Radiculopathy, lumbar region; M71.38 Other bursal cyst, other site; M51.36 Other intervertebral disc degeneration, lumbar region; M48.08 Spinal stenosis, sacral and sacrococcygeal region; M53.3 Sacrococcygeal disorders, not elsewhere classified; M54.40 Lumbago with sciatica, unspecified side; J95.89 Other postprocedural complications and disorders of respiratory system, not elsewhere classified; J98.11 Atelectasis; Y83.8 Other surgical procedures as the cause of abnormal reaction of the patient, or of later complication, without mention of misadventure at the time of the procedure; Y92.530 Ambulatory surgery center as the place of occurrence of the external cause; M19.90 Unspecified osteoarthritis, unspecified site; I10 Essential (primary) hypertension; E66.9 Obesity, unspecified; Z79.01 Long term (current) use of anticoagulants; Z79.51 Long term (current) use of inhaled steroids; Z79.899 Other long term (current) drug therapy; Z79.84 Long term (current) use of oral hypoglycemic drugs; Z68.29 Body mass index [BMI] 29.0-29.9, adult; Z88.0 Allergy status to penicillin; Z87.891 Personal history of nicotine dependence; Z85.42 Personal history of malignant neoplasm of other parts of uterus
CPT/HCPCS: 36415 ×2; 82962; 84132; 85025; 80048; 87070; 88304 ×2; 71045; 72020; 63047; 63048; J2250; J3490 ×4; J1100; J3010 ×2; J2800; J0330; J2405; J2704; J0131; C9290; A9270; 630

== ENCOUNTER 2019-03-06 09:40 | Day surgery (SDC) | payer OTHER, MEDICARE ==
[~2019-03-06 09:40] MED LIST changes: -CLINDAMYCIN 600 MG/D5W RTU 600 MG/50 ML RTUPB IV ONE; -CLINDAMYCIN 600 MG/D5W RTU 600 MG/50 ML RTUPB IV PRN; +KETOROLAC TROMETHAMINE 0.45% 4 DROP/0.4 ML DROPERETTE OD PRN; -LACTATED RINGERS 1000 ML IV PRN; -LIDOCAINE 0.5% INJ-PF (5 MG/ML) 50 ML SDV SUBCUT PRN; +TRYPAN BLUE 0.06 % OPH SOLN 0.5 ML DISP.SYRIN ONE
[2019-03-06] MEDS: BESIFLOXACIN HCL 0.6% OPH SUSP 5 ML BOTTLE OD PRN ×4 (11:13→12:30)
[2019-03-06] MEDS: CYCLOPENTOLATE 0.2%/PHENYLEPHRINE 1% OPH SOLN 2 ML OD PRN ×3 (11:13→11:33)
[2019-03-06] MEDS: TROPICAMIDE 1% OPH SOLN 3 ML OD PRN ×3 (11:13→11:33)
[2019-03-06] MEDS: TETRACAINE HCL 0.5% OPH SOLN 0.6 ML DROPERETTE OD PRN ×2 (11:14→11:33)
[2019-03-06] MEDS ORDERED: MIDAZOLAM 2 MG/2 ML INJ ONE (11:49)
[2019-03-06] MEDS: LIDOCAINE 4% INJ/PF (40 MG/ML) 5 ML AMPUL OD PRN ×2 (12:04)
[2019-03-06] MEDS: BUPIVACAINE HCL 0.75% INJ/PF (7.5 MG/1 ML) 10 ML SDV OD PRN ×2 (12:04)
[2019-03-06] MEDS: EPINEPHRINE INJ/PF 1 MG/1 ML AMPULE ONE ×2 (12:14)
[2019-03-06] MEDS: CHONDR SU A NA/HYALUR INTRAOC KIT (SURGICARE) ONE ×2 (12:14)
[2019-03-06] MEDS: LIDOCAINE 1% INJ-PF (10 MG/ML) 30 ML SDV ONE ×2 (12:14)
[2019-03-06] MEDS: DORZOLAMIDE HCL 2%/TIMOLOL MALEAT 0.5% OPH SOLN 10 ML OD PRN ×2 (12:30)
--- NOTE | 2019-03-06 12:40 | [facility] OPERATIVE REPORT E ---
[facility] Operative Report NAME: NAEL RUIZ AGE: 69Y DATE OF SURGERY: 03/06/2019 ROOM: PREOPERATIVE DIAGNOSIS: CATARACT, RIGHT EYE. POSTOPERATIVE DIAGNOSIS: CATARACT, RIGHT EYE. PROCEDURE PERFORMED: PHACOEMULSIFICATION WITH POSTERIOR CHAMBER INTRAOCULAR LENS, RIGHT EYE. SURGEON: ALEXX CHAHAL MD ANESTHESIA: TOPICAL ANESTHESIA. PROCEDURE: The patient was brought to the Operating Room and placed on the operative table. Following tetracaine drops, topical anesthesia was administered. This consisted of instrument wipe pledgets soaked in a solution of 4% Xylocaine mixed with 0.75% Marcaine in a 1:2 ratio. A 2 x 1 cm pledget was placed in the superior fornix. A 1 x 1 cm pledget was placed in the inferior fornix. The eye was patched shut for 5 minutes. The patch was removed. The eye was sterilely prepped and draped in the usual manner. Lid speculum was placed in the eye. The pledgets were removed. 4-0 black silk sutures were placed around the superior and the inferior rectus muscles to be used as traction. A conjunctival peritomy was made at the 10 o'clock position. Hemostasis was obtained with bipolar cautery. A posterior limbal groove was created using a crescent knife and dissected anteriorly towards the cornea. A sharp point blade was used to create a paracentesis site at the 2 o'clock position. A 2.4 mm keratome was used to enter the anterior chamber through the groove. Viscoelastic was injected into the anterior chamber. An anterior capsulotomy was performed using Utrata forceps in a capsulorrhexis fashion. Hydrodissection and hydrodelineation were performed. Phacoemulsification was performed in [id number] technique. A total of 3.34 CDE phaco time was used. Following this, the I/A unit was used to remove residual cortex. Viscoelastic was injected into the capsular bag. Intraocular lens model SN60WF, 18.5 diopters, serial number [id number] was placed in the capsular bag. The I/A unit was used to remove residual viscoelastic. The wound was seen to be watertight under high and low pressure, and no sutures were placed. The intraocular lens was well centered. The pressure was adjusted in the eye to normal pressure. The 4-0 black silk sutures and lid speculum were removed. The eye was shielded after Besivance drops were placed. The patient tolerated the procedure well and was sent to the Recovery Room in good condition. A 0.1 mL of non-preserved lidocaine was injected in the eye following the incision. One drop of Cosopt was placed in the eye at the end of surgery. DICTATING PHYSICIAN: ALEXX CHAHAL M.D. DICTATING PHYSICIAN: ALEXX CHAHAL M.D. [id number] Y#: [id number] ID: [id number] JOB#: [id number] ACCT: [id number] cc:ALEXX CHAHAL M.D. >
[2019-03-06 12:45] VITALS: BP 180/65
--- NOTE | 2019-03-06 12:45 | [facility] DISCHARGE SUMMARY E ---
[facility] Discharge Summary NAME: NAEL RUIZ AGE: 69Y ADMITTED: 03/06/2019 DISCHARGED: 03/06/2019 FINAL DIAGNOSIS: CATARACT, RIGHT EYE HOSPITAL COURSE: The patient is a 68-year-old lady who underwent uneventful cataract extraction with intraocular lens implant, right eye on 03/06/19. She will be discharged to home. She is instructed to resume preoperative medications, take Tylenol as needed for discomfort, to keep her eye shielded, to use Predforte, Ketorolac, and Vigamox at 3 p.m. and 8 p.m. and to follow up in my office in 1 day. DICTATING PHYSICIAN: ALEXX CHAHAL M.D. [id number] PHY#: [id number] ID: [id number] JOB#: [id number] ACCT: [id number] cc:ALEXX CHAHAL M.D. >
== END 2019-03-06 13:00 | disposition home or self-care (01) ==
LOC: SC 09:40
PROVIDERS: ATTEND Ophthalmology
DX: H25.89 Other age-related cataract (principal)
CPT/HCPCS: 66984; V2632; J3490 ×4; J0171; J2250